=== PATIENT | male | born 1990 | race Caucasian/White ===

== ENCOUNTER 2019-08-19 09:12 | Emergency (ER) | payer SELFPAY ==
[2019-08-19 09:24] VITALS: BP 131/75
--- NOTE | 2019-08-19 10:31 | UC ---
Dental HPI - HPI Summary HPI Summary: 28 yo male presents with dental pain. He tells me that over the last 4-5 days he has had progressing pain and swelling to his gum and cheek in the left upper area of his mouth. He has had dental abscesses in the past and this feels the same. He does not have a dentist and does not want one because he "doesn't like them". He is eating and drinking, but has increased pain with this. Denies fever or chills. - History of Current Complaint Chief Complaint: UCDentalProblem Stated Complaint: DENTAL COMPLAINT Time Seen by Provider: 08/19/19 10:30 Hx Obtained From: Patient Onset/Duration: Gradual Onset Severity: Moderate Pain Intensity: 7 Pain Scale Used: 0-10 Numeric - Allergies/Home Medications Allergies/Adverse Reactions: Allergies Allergy/AdvReac Type Severity Reaction Status Date / Time No Known Allergies Allergy Verified 08/19/19 09:24 PMH/Surg Hx/FS Hx/Imm Hx - Additional Past Medical History Additional PMH: None - Surgical History Surgical History: None - Family History Known Family History: Positive: Non-Contributory - Social History Occupation: Employed Full-time Lives: With Family Alcohol Use: Occasionally Substance Use Type: None Smoking Status (MU): Never Smoked Tobacco Review of Systems All Other Systems Reviewed And Are Negative: No Constitutional: Positive: Negative Skin: Positive: Negative Eyes: Positive: Negative ENT: Positive: Dental Pain Respiratory: Positive: Negative Cardiovascular: Positive: Negative Gastrointestinal: Positive: Negative Neurological: Positive: Negative Psychological: Positive: Negative Physical Exam - Summary Physical Exam Summary: GENERAL: NAD. WDWN. No pain distress. SKIN: No rashes, sores, lesions, or open wounds. HEENT: Head: AT/NC. Mild left cheek edema Nose: Nasal mucosa pink and moist. NTTP maxillary and frontal sinus. Throat: Posterior oropharynx without exudates, erythema, or tonsillar enlargement. Uvula midline. NECK: Supple. Nontender. No lymphadenopathy. CHEST: CTAB. No r/r/w. No accessory muscle use. Breathing comfortably and in no distress. CV: RRR. Without m/r/g. Pulses intact. Cap refill <2seconds NEURO: Alert. PSYCH: Age appropriate behavior. Triage Information Reviewed: Yes Vital Signs: Initial Vital Signs Temp 98.4 F 08/19/19 09:20 Pulse 76 08/19/19 09:20 Resp 16 08/19/19 09:20 BP 131/75 08/19/19 09:20 Pulse Ox 99 08/19/19 09:20 Vital Signs Reviewed: Yes Dental: Positive: Percussion Tenderness @ - Tooth #14, Abscess @ - Tooth #14, Cellulitis @ - Tooth #14. Negative: Dental Fracture @, Cervical Lymphadenopathy , Bleeding Procedures - Incision and Drainage Left Jaw Site: Tooth #14 Anesthesia: Topical - viscous 2% lidocaine Instrument(s): Needle - 22G Packing: Other - None Dental Complaint Course/Dx - Course Course Of Treatment: Tooth #14 abscess. The procedure was explained to the pt and all questions were answered. A time out was performed, witnessed, and signed. Viscous 2% lidocaine was administered to the area and good anesthetization was achieved. A 22G needle was used to marin the central most part of the dental abscess and copious yellow purulent material was expressed. Pt tolerated procedure well. Will start him with amoxicillin. He was also provided with a list of local dentists and encouraged to follow up - Differential Dx/Diagnosis Provider Diagnosis: Dental abscess Discharge ED - Sign-Out/Discharge Documenting (check all that apply): Patient Departure All imaging exams completed and their final reports reviewed: No Studies - Discharge Plan Condition: Stable Disposition: HOME Prescriptions: Amoxicillin PO (*) [Amoxicillin 500 MG CAP*] 500 mg PO Q12H #14 cap Patient Education Materials: Dental Abscess (ED) Referrals: Ramiro Rosario MD [Primary Care Provider] - Additional Instructions: If you develop a fever, shortness of breath, chest pain, new or worsening symptoms - please call your PCP or go to the ED immediately. - Billing Disposition and Condition Condition: STABLE Disposition: Home
[2019-08-19] MEDS ORDERED: Benzocaine/Butamben/Tetracain* SPRAY TOPICAL ONE (10:33)
[2019-08-19] MEDS ORDERED: Lidocaine 2% VISCOUS* 15 ML UDC SWISH SPIT ONE (10:39)
[2019-08-19] MEDS ORDERED: Ibuprofen TAB* 400 MG PO ONE (10:55)
== END 2019-08-19 11:07 | disposition home or self-care (01) ==
LOC: UCEAST 09:12
DX: K04.7 Periapical abscess without sinus (principal)
CPT/HCPCS: 10060; 99202; A9270-GY; G0463

== ENCOUNTER 2020-02-09 09:47 | Emergency (ER) | payer SELFPAY ==
[2020-02-09 10:19] VITALS: BP 169/65
--- NOTE | 2020-02-09 10:47 | UC ---
General HPI - HPI Summary HPI Summary: CHIEF COMPLAINT: needs work note HPI: This is a healthy 29 year old with no symptoms who took time off from work 3 days ago and now needs a work note. Description of Pain: none VITAL SIGNS REVIEWED. Within normal limits unless noted here. NURSES NOTE REVIEWED. " pt states he does not have any symptoms .pt called into work on monday 02/05. had 02/06 & 02/07 as schedualed days off and was to return to work today and was told by [employer] Department Chair he needed a work release to return to [employer]. " - History of Current Complaint Chief Complaint: UCGeneralIllness Stated Complaint: NEEDS WORK NOTE TO GO TO WORK Time Seen by Provider: 02/09/20 10:38 Pain Intensity: 0 - Allergy/Home Medications Allergies/Adverse Reactions: Allergies Allergy/AdvReac Type Severity Reaction Status Date / Time No Known Allergies Allergy Verified 02/09/20 10:20 Home Medications: Home Medications NK [No Home Medications Reported] 02/09/20 [History Confirmed 02/09/20] PMH/Surg Hx/FS Hx/Imm Hx - Additional Past Medical History Additional PMH: PAST MEDICAL HISTORY- CHRONIC and RECURRENT HEALTH PROBLEM LIST REVIEWED. Information relevant to present complaint: VISIT HISTORY REVIEWED. MEDICATIONS & ALLERGIES REVIEWED. HYPERTENSION STATUS: NONE. FAMILY HISTORY: Patient denies family history of: hypertension, cardiovascular disease, stroke, diabetes, cancer. SOCIAL HISTORY: Home: alone Employment: [employer] Previously Healthy: Yes - Surgical History Surgical History: None - Family History Known Family History: Positive: Non-Contributory - Social History Alcohol Use: Occasionally Substance Use Type: None Smoking Status (MU): Never Smoked Tobacco Length of Time of Smoking/Using Tobacco: since age 16. Have You Smoked in the Last Year: No When Did the Patient Quit Smoking/Using Tobacco: 9 months Review of Systems All Other Systems Reviewed And Are Negative: Yes Respiratory: Positive: Negative Cardiovascular: Positive: Negative Gastrointestinal: Positive: Negative Is Patient Immunocompromised?: No Physical Exam - Summary Physical Exam Summary: Appearance: The patient is well-appearing, is in no pain or distress, and is well-nourished. Eyes: Conjunctiva are clear. Pupils are equal and reactive to light and accommodation. Extra ocular muscle movement is intact. ENT: The hearing is grossly normal, the pharynx is normal, and the TMs are normal. There is no muffled or hoarse voice. No stridor. Neck: The neck is supple and there is no lymphadenopathy. Respiratory: The chest is non-tender to palpation and without crepitus. The lungs are clear, there are normal breath sounds, and there is no respiratory distress. No wheezes, rales or rhonchi. Cardiovascular: Heart sounds reveal a regular rate and rhythm. There are no clicks, rubs or murmurs. There are no carotid bruits or thrills. Circulation is grossly intact. Abdomen: The abdomen is soft and nontender. There is no organomegaly. Bowel sounds are present and within normal limits. No point tenderness at McBurneys point. No CVA tenderness. Musculoskeletal: Strength is intact. The patient moves all extremities. Neurological: The patient is alert. Motor and sensory are examination grossly intact. Speech is normal. Psychological: The patient displays age appropriate behavior, and is conversant. GCS=15. Skin: Negative for rashes. Triage Information Reviewed: Yes Vital Signs: Initial Vital Signs Temp 97.7 F 02/09/20 10:11 Pulse 96 02/09/20 10:11 Resp 18 02/09/20 10:11 BP 169/65 02/09/20 10:11 Pulse Ox 100 02/09/20 10:11 Course/Dx - Course Course Of Treatment: 29-year-old who took a day off work and needs a return to work note. The patient has a normal physical exam with the exception of a elevated blood pressure at 169/65. Patient was made aware of this and will follow up. Otherwise his examination was within normal limits and I gave him a note to return to work. - Diagnoses Provider Diagnosis: Normal physical exam Discharge ED - Sign-Out/Discharge Documenting (check all that apply): Patient Departure All imaging exams completed and their final reports reviewed: No Studies - Discharge Plan Condition: Stable Disposition: HOME Referrals: No Primary Care Phys,NOPCP [Primary Care Provider] - Additional Instructions: WE DISCUSSED: PLEASE SEEK CARE AT THE EMERGENCY DEPARTMENT IF SYMPTOMS WORSEN OR IF NEW SYMPTOMS DEVELOP. FOLLOW UP WITH YOUR PRIMARY CARE PHYSICIAN IF CONDITION CONTINUES BEYOND 3 DAYS WITHOUT IMPROVEMENT. YOUR DIAGNOSIS IS: YOUR PRESCRIPTION RECOMMENDATION IS: OTHER INSTRUCTIONS: Hypertension Discharge Instructions: Your blood pressure reading today was , indicating HYPERTENSION. Follow-up with your primary care provider within 4 weeks for blood pressure check and appropriate recommendations and treatment, as needed. FOR PAIN AND/OR SLEEP: For pain: Ibuprofen (Motrin and other brand names) 400-600mg PLUS acetaminophen (Tylenol and other brand names) 500mg - 1000mg every 8 hours. - Billing Disposition and Condition Condition: STABLE Disposition: Home
== END 2020-02-09 11:01 | disposition home or self-care (01) ==
LOC: UCEAST 09:47
DX: Z00.00 Encounter for general adult medical examination without abnormal findings (principal)
CPT/HCPCS: 99211; G0463